=== PATIENT | female | born 2000 | race Caucasian/White ===

== ENCOUNTER → 2025-06-05 08:53 | Outpatient (CLI) | payer OTHER, SELFPAY ==
[2025-06-05 10:26] LABS: Iron 154 ug/dL (37-170)
[2025-06-05 10:27] LABS: Calcium 9.5 mg/dL (8.4-10.2)
[2025-06-05 11:26] LABS: Folate 9.5 ng/mL (2.76-20.0); Vitamin B12 720 pg/mL (239-931)
== END ==
PROVIDERS: PCP Massage Therapist; Referring Provider Massage Therapist; Visit Provider Massage Therapist
DX: R06.00 Dyspnea, unspecified (principal); M62.830 Muscle spasm of back; R07.89 Other chest pain; R00.2 Palpitations
CPT/HCPCS: 36415; 82310; 82495; 82525; 82607; 82746; 83018; 83540; 83785; 84207; 84255; 84425; 84591; 84630